=== PATIENT | male | born 2000 | race Hispanic/Latino ===

== ENCOUNTER 2024-09-23 06:03 | Day surgery (SDC) | payer OTHER ==
[2024-09-22 16:02] LABS: Absolute Basophils 0.1 K/uL (0-0.5); Absolute Eosinophils 0.6 K/uL (0-0.5); Absolute Monocytes 0.4 K/uL (0.1-1.3); Absolute Neutrophil 3.3 K/uL (1.8-8.0); Basophils % 1.2 % (0-1.3); Eosinophils % 9.6 % (0-4.4); Hematocrit 44.2 % (39.6-49.0); Hemoglobin 15.4 g/dL (13.6-17.9); Lymphocytes % 30.9 % (15.3-44.8); MCH 29.3 pg (27.0-35.0); MCHC 34.8 g/dL (32.0-36.0); MPV 7.8 fL (7.6-11.3); Monocytes % 6.4 % (3.3-12.3); Neutrophils % 51.9 % (41.7-73.7); Nucleated Red Blood Cells % 0.1 % (0-0); Platelets 267 thou/uL (152-406); RBC Red Blood Cell Count 5.26 M/uL (4.33-5.43); Red Cell Distribution Width 13.5 % (12.1-15.2)
[2024-09-22 16:15] LABS: Anion Gap 10.7 mEq/L (5.0-15.0); Potassium 3.7 mEq/L (3.5-5.1)
[2024-09-23] MEDS: Ringers Lactate 1,000 ML IV ONE (06:18)
[2024-09-23] MEDS ORDERED: LIDOCAINE 2% MPF 5 ML VIAL ONE (07:13)
[2024-09-23] MEDS ORDERED: ROCURONIUM 50 MG/5 ML VIAL IV ONE (07:13)
[2024-09-23] MEDS ORDERED: ONDANSETRON 4 MG/2 ML VIAL ONE (07:13)
[2024-09-23] MEDS ORDERED: FENTANYL CITR 100 MCG/2 ML ONE ×2 (07:13→08:03)
[2024-09-23] MEDS ORDERED: propofoL 200 MG/20 ML VIAL IV ONE (07:13)
[2024-09-23] MEDS ORDERED: MIDAZOLAM HCL 2 MG/2 ML INJ ONE (07:13)
[2024-09-23] MEDS ORDERED: SUGAMMADEX SODIUM 200 MG/2 ML VIAL IV ONE (07:14)
[2024-09-23] MEDS ORDERED: dexAMETHasone 10 MG/ML VIAL ONE (07:44)
[2024-09-23] MEDS: CEFAZOLIN SODIUM 1 GM/VIAL ONE (07:47)
[2024-09-23] MEDS ORDERED: Mastisol Adhesive Liq ONE (08:13)
[2024-09-23] MEDS ORDERED: KETOROLAC 30 MG/ML INJ ONE (08:18)
[2024-09-23 08:46] VITALS: O2SAT 100
--- NOTE | 2024-09-23 08:48 | P.BOP ---
Preoperative diagnosis: tender right inguinal hernia Postoperative diagnosis: same Primary procedure: Laparoscopic repair of tender right inguinal hernia with mesh Estimated blood loss: <10cc Findings: as above Anesthesia: General Complications: None Transferred to: Recovery Room Condition: Good
[2024-09-23] MEDS: MEPERIDINE HCL 25 MG/ML SYR ONE (08:53)
[2024-09-23] MEDS: HYDROCODONE/APAP 5/325 MG TAB ONE (09:40)
[2024-09-23 11:49] VITALS: BP 132/89; TEMP 97.4
--- NOTE | 2024-09-23 13:50 | OP ---
Date of Procedure: 09/23/2024 Surgeon: Bart Solis MD Preoperative Diagnosis: Tender right inguinal hernia. Postoperative Diagnosis: Tender right inguinal hernia. Procedure Performed: Laparoscopic repair of tender right inguinal hernia with mesh. Estimated Blood Loss: Less than 10 cc. Finding: Right inguinal hernia. Anesthesia: General plus local. Complications: None. Indications For Procedure: This is a case of a 23-year-old patient who came to us with above diagnos es. Fully explained the benefits, alternatives, and risks of laparoscopic, possible open repair of r ight inguinal hernia with mesh, which include, but not limited to, infection, bleeding, damage to adj acent structures, anesthesia complication, recurrence, MT, and even . He also understands this may not relieve any symptoms. He might need more than one surgical intervention. He also understand s we may be using mesh in that region, so pros and cons of mesh placement were discussed with the pat ient and all the questions were answered to his satisfaction. He signed a consent. Description Of Procedure: The patient was brought to the operating room, placed in supine position. Anesthesia was without complication. A time-out was called. The abdomen and right inguinal area we re prepped and draped in sterile fashion. Local anesthetic was applied followed by sharp incision of the skin in the infraumbilical region until we found the anterior rectus sheath. Anterior rectus sh eath was opened on the right side. The muscle retracted laterally to expose the posterior rectus she ath. The extraperitoneal space was gently developed with the help of blunt dissection and a balloon tipped trocar was placed in that area directed to the pubis symphysis. A laparoscope was placed in t hat area, inflated under direct visualization and the extraperitoneal space was developed. The ballo on was deflated, removed. We insufflated the area and then under direct visualization with the camer a in place, we placed a 5 mm trocar just to the area of the pubic symphysis and another one correction b etween the first and the second one. The preperitoneal space was further developed by exposing the i nferior epigastric vessels keeping them anterior. The Iam's ligament was dissected laterally to t he junction with the iliac veins and dissection continued inferiorly to the iliopubic tract avoiding damage to the femoral branch of the genitofemoral nerve and the lateral femoral cutaneous nerve. The cord structures were carefully skeletonized. The hernia was identified and retracted and reduced by gentle traction into the peritoneal cavity. The medium 3D mesh was then selected and overall in ed ce to the periumbilical trocar. The mesh was placed along the inferior aspect and we covered direct/ indirect spaces. The mesh was secured in place with SorbaFix inferior medial to the Iam ligament and lateral and superior to the iliopubic tract. After ensuring adequate hemostasis, we sprayed some local anesthetics over the area. Then, allowed the air to reduce as we were holding the mesh in ed ce and make sure that the hernia sac is still reduced. The trocars were removed. Anterior rectus sh eath was closed with #1 Vicryl and the skin was approximated with 3-0 chromic in a subcuticular fashi on. Sponge counts and instrument counts were correct. The patient tolerated the procedure well. At the end of the case, testicles were within the scrotum. The patient was sent to Recovery in stable condition. WAI/JANI Voice ID: [id number] Report ID: [id number]
--- NOTE | 2024-09-23 14:00 | DS ---
Date of Discharge: 09/23/2024 Diagnosis: Tender right inguinal hernia. Procedure: Laparoscopic repair of tender right inguinal hernia with mesh. Condition: Stable. Disposition: Home. Activity: As tolerated. No heavy lifting. Discharge Instructions: Follow up in my office in one week. Call for appointment at [phone]. Keep area dry for 48 hours, then may shower. Keep Steri-Strips intact. Cold compress to the right ingui nal region for 24 hours. WAI/JANI Voice ID: [id number] Report ID: [id number]
== END 2024-09-23 10:25 | disposition home or self-care (01) ==
LOC: OR 06:03
PROVIDERS: ATTEND Surgery
PROC: 0YU54JZ Supplement Right Inguinal Region with Synthetic Substitute, Percutaneous Endoscopic Approach (ICD-10-PCS; principal; 2024-09-23 07:30)
DX: K40.90 Unilateral inguinal hernia, without obstruction or gangrene, not specified as recurrent (principal)
CPT/HCPCS: 85025; 80048; 36415; 49650; J2704; J2003; J2250; J3010 ×2; J1100; J2175; J2405; J7120; J0690; A4314